=== PATIENT | male | born 1970 | race Caucasian/White ===

== ENCOUNTER 2019-02-23 05:44 | Inpatient (IN) | payer BC ==
[2019-02-22 15:28] VITALS: BMI 31.1
[~2019-02-23] VITALS: Ht 185.4 cm; Wt 105.6 kg
[2019-02-23] VITALS (40 sets, daily range): BP systolic 107–140; BP diastolic 51–72; PULSE 56–104; RESP 10–25; Ht 185.4 cm; Wt 105.6 kg
[2019-02-23] MEDS ORDERED: LIDOCAINE 2% (SDV) 5 ML INJ ONE (07:00)
[2019-02-23] MEDS ORDERED: DESFLURANE 15 MIN ONE (07:00)
[2019-02-23] MEDS: LACTATED RINGER'S 1,000 ML IV SCH (07:10)
--- NOTE | 2019-02-23 07:42 | HPN ---
Date/Time of Note Date/Time of Note DATE: 02/23/19 TIME: 07:42 Interval H&P Admission Note Pt. seen H&P reviewed: No system changes HAYDEE MELO MD Feb 23, 2019 07:42
[2019-02-23] MEDS ORDERED: GELATIN SIZE 100 SPONGE ONE (07:44)
[2019-02-23] MEDS ORDERED: THROMBIN 5000 UNIT VIAL ONE ×2 (07:44→09:02)
[2019-02-23] MEDS ORDERED: POLYMYXIN/BACITRACIN 1L IRRIG ONE (07:45)
[2019-02-23] MEDS ORDERED: BUPIVACAINE 0.5%/EPI (SDV) 30 ML INJ ONE (07:45)
[2019-02-23] MEDS ORDERED: ROCURONIUM 50 MG INJ ONE (07:58)
[2019-02-23] MEDS ORDERED: CEFAZOLIN 1 GM INJ ONE (07:58)
[2019-02-23] MEDS ORDERED: NEOSTIGMINE 3 MG/3 ML SYRINGE ONE (07:58)
[2019-02-23] MEDS ORDERED: PROPOFOL 20 ML ONE (07:58)
[2019-02-23] MEDS ORDERED: GLYCOPYRROLATE 0.4 MG INJ ONE (07:58)
[2019-02-23] MEDS ORDERED: FENTAnyl 50 MCG/ML VIAL ONE ×3 (07:59→14:02)
[2019-02-23] MEDS ORDERED: MIDAZOLAM 1 MG/ML 2 ML INJ ONE (07:59)
[2019-02-23] MEDS ORDERED: ONDANSETRON 4 MG INJ ONE (07:59)
[2019-02-23] MEDS ORDERED: DEXAMETHASONE 4 MG/ML 5 ML INJ ONE (07:59)
[2019-02-23] MEDS ORDERED: CEFAZOLIN 2 GM/50 ML (PMX) 50 ML IVPB ONE (08:00)
--- NOTE | 2019-02-23 08:00 | PREAC ---
Date/Time of Note Date/Time of Note DATE: 02/23/19 TIME: 07:59 Anesthesia Eval and Record Evaluation Time Pre-Procedure Interview DATE: 02/23/19 TIME: 07:59 Age 48 Sex male NPO: 8 hrs Preoperative diagnosis grade 1 l4-l5 spondylolisthesis Planned procedure l4-l5 decompression and instrumented fusion Past Medical History Past Medical History: Includes Pulm: Smoking Hx (15 PY) Surgery & Anesthesia Issues No known issue Meds Anticoagulation: No Beta Divina within 24 hr: No Reason Beta Divina not given: Pt. not on B-Divina No Active Prescriptions or Reported Meds Current Medications Lactated Ringer's 1,000 ml @ 25 mls/hr Q24H IV Last administered on 02/23/19at 07:10; Admin Dose 25 MLS/HR; Start 02/23/19 at 06:30 Cefazolin Sodium/ Dextrose 50 ml @ 100 mls/hr PRE-OP ONCE IVPB ; Start 02/23/19 at 08:00; Stop 02/23/19 at 08:29 Meds reviewed: Yes Allergies Coded Allergies: No Known Allergy (Unverified , 02/23/19) Allergies Reviewed: Yes Labs/Studies Labs Reviewed: Reviewed by anesthesiologist Blood Bank Test 02/23/19 07:07 Antibody Screen NEGATIVE Blood Type O POSITIVE test: N/A Studies: ECG (NL), CXR (NAPD) Pre-procedure Exam Last vitals Vital Signs Date Temp Pulse Resp B/P (MAP) Pulse Ox O2 O2 Flow FiO2 Time Delivery Rate 02/23/19 98.6 56 18 118/69 96 Room Air 06:51 (85) Airway: Adequate mouth opening, Adequate thyromental dist Mallampati: Mallampati II Teeth: Normal Lung: Normal Heart: Normal ASA Physical Status ASA physical status: 2 Emergency: None Planned Anesthetic General/MAC: ETT Planned Pain Management Parenteral pain med Pre-operative Attestations Prior to commencing anesthesia and surgery, the patient was re-evaluated, there was verification of: *The patient's identity *The results of appropriate recent lab work and preoperative vital signs *The above evaluation not changing prior to induction *Anesthetic plan, risk benefits, alternative and complications discussed with patient/family; questions answered; patient/family understands, accepts and wishes to proceed. Teodoro Brown M.D. Feb 23, 2019 08:00
[2019-02-23] MEDS ORDERED: OXYCODONE/ACETAMINOPHEN (5/325) TAB PO PRN ×2 (08:30)
[2019-02-23] MEDS ORDERED: IPRATROPIUM (NEB) 0.5 MG/2.5 ML AMP HHN PRN (08:30)
[2019-02-23] MEDS ORDERED: hydrALAzine 20 MG INJ IV PRN (08:30)
[2019-02-23] MEDS ORDERED: LABETALOL HCL 20MG INJ IV PRN (08:30)
[2019-02-23] MEDS ORDERED: DIPHENHYDRAMINE 50 MG INJ IV PRN (08:30)
[2019-02-23] MEDS ORDERED: HYDROmorphONE 1 MG/5 ML IV SYRINGE IV PRN ×3 (08:30)
[2019-02-23] MEDS ORDERED: MEPERIDINE 25 MG INJ IV PRN (08:30)
[2019-02-23] MEDS ORDERED: ONDANSETRON 4 MG INJ IV PRN ×2 (08:30→15:00)
[2019-02-23] MEDS ORDERED: FENTAnyl 50 MCG/ML VIAL IV PRN ×3 (08:30)
[2019-02-23] MEDS ORDERED: MIDAZOLAM 1 MG/ML 2 ML INJ IV PRN (08:30)
[2019-02-23] MEDS ORDERED: TRIMETHOBENZAMIDE 100 MG/ML VIAL IM PRN (08:30)
[2019-02-23] MEDS ORDERED: ALBUTEROL 0.083% (NEB) 2.5 MG/3 ML AMP HHN PRN (08:30)
[2019-02-23] MEDS ORDERED: EPHEDrine 25 MG/5 ML SYG IV PRN (08:30)
--- NOTE | 2019-02-23 14:30 | PAC ---
Date/Time of Note Date/Time of Note DATE: 02/23/19 TIME: 14:30 Post-Anesthesia Notes Post-Anesthesia Note Last documented vital signs Vital Signs Date Temp Pulse Resp B/P (MAP) Pulse Ox O2 O2 Flow FiO2 Time Delivery Rate 02/23/19 98.6 56 18 118/69 96 Room Air 06:51 (85) Activity: WNL Respiratory function: WNL Cardiovascular function: WNL Mental status: Baseline Pain reasonably controlled: Yes Hydration appropriate: Yes Nausea/Vomiting absent: Yes Teodoro Brown M.D. Feb 23, 2019 14:30
[2019-02-23] MEDS: DEXTROSE 5%-0.45% NACL 1,000 ML IV SCH ×2 (14:38→23:20)
--- NOTE | 2019-02-23 14:38 | OPR ---
Date/Time of Note Date/Time of Note DATE: 02/23/19 TIME: 14:26 Operative Report Free Text/Dictation DATE OF SURGERY: 02/23/2019 PREOPERATIVE DIAGNOSES: 1. L4-5 grade 1 degenerative spondylolisthesis with severe spinal stenosis and right greater than left sided L4 and L5 radiculopathy 2. Right sided L3-4 subarticular stenosis with L4 radiculopathy POSTOPERATIVE DIAGNOSES: 1. L4-5 grade 1 degenerative spondylolisthesis with severe spinal stenosis and right greater than left sided L4 and L5 radiculopathy 2. Right sided L3-4 subarticular stenosis with L4 radiculopathy OPERATION PERFORMED: 1. Transforaminal lumbar interbody fusion (TLIF) L4-5 2. Placement of anterior interbody device (TLIF cage) L4-5 3. Placement of posterior spinal segmental instrumentation L4-5 4. Posterior spinal fusion L4-5 5.Bilateral L4-5 laminectomy, medial facetectomy and foraminotomy 6. Right sided L3-4 partial laminontomy, medial facetectomy and foraminotomy 7. Interpretation of neuromonitoring SURGEON: Haydee Melo MD Medical Esthetician: CHRISTIANE Nur ANESTHESIA: General endotracheal ESTIMATED BLOOD LOSS: 350 cc SURGICAL INDICATION: The patient is a 48 year-old male who presents with an increasing history of back and right greater than left sided leg pain. The patient was found to have an unstable spondylolisthesis at L4-5 with associated stenosis a right sided subarticular stenosis at L3-4 with radiculopathy. The patient had failed conservative treatments. Risks, benefits and alternatives to posterior decompression with spinal fusion with instrumentation and TLIF were explained to the patient including but not exclusive of bleeding, infection, visceral injury, nerve injury, nonunion, instrumentation failure, lack of symptom relief, myocardial infarction, stroke, and pulmonary embolism, adjacent segment disease and they wished to proceed. DESCRIPTION OF TECHNIQUE: The patient was identified in the preoperative area and taken to the operating room. Rapid induction of general endotracheal anesthesia was performed. Patient was given 2 g of cefazolin for prophylaxis. Patient was placed in the prone position, with all bony prominences were well-padded, on a Unruly table . Patient's lower back was prepped and draped in sterile fashion. A time-out was held in which patient identifying information including name, date of and medical record number were all verified. We began our procedure by marking L4- 5 disc space levels using a spinal needle and fluoroscopic guidance. An incision was then made accordingly midline. A self retraining retractor was then placed at the L4-5 level after dissecting down the bilateral L4 spinous process and lamina and over the facet capsule. Intraoperative fluoroscopy confirmed the level. A rongeur was used to remove the L4 spinous process and the interspinous ligaments. We identified the interlaminar window. The microscope was brought into use for microdissection. The high-speed bur was used to thin the L4 lamina. Kerrison rongeurs were then used to resect a the lamina, and a portion of the medial facet and the bone overlying the foramen bilaterally. Ligamentum flavum was also resected using the Kerrison rongeurs. Care was taken to protect the thecal sac throughout the decompressive procedure. Palpation with a ball-tip probe did not reveal any further stenosis at the end of the procedure at L4-5 in the central, subarticular, or foraminal areas. The bilateral L5 and L4 pedicles were palpated using a liu to ensure a pedicle to pedicle decompression. The exiting L4 nerve root and traversing L5 nerve roots were both directly visualized and noted to be decompressed. The cephalad and caudad extent of the decompression were also confirmed using ball-tip probes and intraope rative fluoroscopy. We then retracted the dura and the traversing L5 nerve root using a nerve retractor to expose the right sided disk space. We then performed a discectomy at this level using a disc knife, a series of curettes and christie, and a rasp. Meticulous dissection was performed during this part of the procedure. We ensured not to violate the endplates and remove as much disc material as possible. We then placed a series of trials to find the correct size for our cage. A 12 mm x 28mm 8 degree lordotic cage was chosen and was found to be of appropriate fit. Prior to placement of this cage the disc space was packed with patient allograft from bony resection of his spinous process as well as osteo-cell pro. We then placed the appropriate size cage that was also filled with osteocel pro and allograft into the disc space. We ensured appropriate midline and A-P placement of the cage using AP and lateral x-rays. We then extended are decompression proximally to the L3-4 level on the right. A rongeur was used to remove a portion of the L3 spinous process and the interspinous ligaments. We identified the interlaminar window. The microscope was brought into use for microdissection. The high-speed bur was used to thin the right L3 lamina. Kerrison rongeurs were then used to resect a portion of the lamina, and a portion of the medial facet and the bone overlying the foramen on the right. Ligamentum flavum was also resected using the Kerrison rongeurs. Care was taken to protect the thecal sac throughout the decompressive procedure. Palpation with a ball-tip probe did not reveal any further stenosis at the end of the procedure at the L3-4 central, right subarticular, or right foraminal areas. The right L4 and L3 pedicles were palpated using a liu to ensure a pedicle to pedicle decompression. The exiting L3 nerve root and traversing L4 nerve roots were both directly visualized and noted to be decompressed. The cephalad and caudad extent of the decompression were also confirmed using ball- tip probes and intraoperative fluoroscopy. We then focused on placement of posterior spinal segmental instrumentation from L4-5. Using intraoperative fluoroscopy, the pedicles were identified at each level. Care was taken to alter the fluoroscopic view to have a true AP and lateral at each level. Jamshidi needles were then passed down to the lateral aspect of the pedicles through stab incisions. The Jamshidi needles were malleted into the pedicles. These were also performed under EMG guidance. Care was taken to ensure that the needles did not pass the medial wall of the pedicle on the AP view prior to checking that the needle was past the posterior wall of the vertebral body. The needles were then malleted further into the vertebral bodies themselves. Guidewires were passed through the needles and the needles were removed. Taps were applied over the guidewires. Screws were then placed bilaterally into the vertebral bodies. AP and lateral views confirmed appropriate placement of the instrumentation. Attention was turned toward the posterior spinal fusion from L4-5. Rods were selected of the appropriate length and placed into the screw heads. End caps were applied and final tightening was performed using a [id number]-vygfbc wrench. The exposed the facet joints were decorticated. A small remaining amount of allograft was placed into the facet joints to facilitate the posterior fusion. The wound was irrigated copiously using normal saline. The fascia was then closed using 1 Vicryl in interrupted fashion. Subcutaneous tissue was closed using 2-0 Vicryl in interrupted fashion. A drain (medium Hemovac)was also placed in the wound. Skin was closed using a running 4-0 Monocryl stitch. The wounds were dressed using Dermabond, sterile gauze and Tegaderm. The patient was returned to the supine position. The patient was extubated immediately postoperatively and taken to the recovery room in stable condition. Patient tolerated the procedure well and left the operating room in stable condition. Implants used: 1. 12mm x28mm TLIF cage (Nuvasive) 3. Osteocel pro 5. NuVasive 6.545 mm screws x4 6.45 mm russ x 1 (Left), 40mm russ x 1 (Right) Procedure Date: Feb 23, 2019 Preoperative Diagnosis 1. L4-5 grade 1 degenerative spondylolisthesis with severe spinal stenosis and right greater than left sided L4 and L5 radiculopathy 2. Right sided L3-4 subarticular stenosis with L4 radiculopathy Postoperative Diagnosis 1. L4-5 grade 1 degenerative spondylolisthesis with severe spinal stenosis and right greater than left sided L4 and L5 radiculopathy 2. Right sided L3-4 subarticular stenosis with L4 radiculopathy Operation/Procedure Performed 1. Transforaminal lumbar interbody fusion (TLIF) L4-5 2. Placement of anterior interbody device (TLIF cage) L4-5 3. Placement of posterior spinal segmental instrumentation L4-5 4. Posterior spinal fusion L4-5 5.Bilateral L4-5 laminectomy, medial facetectomy and foraminotomy 6. Right sided L3-4 partial laminontomy, medial facetectomy and foraminotomy 7. Interpretation of neuromonitoring Surgeon see signature line Medical Esthetician CHRISTIANE Nur Anesthesia Type: general Estimated Blood Loss: 250 - 300 ml's Transfusion none Specimen L4-5 disk Grafts/Implants see op report Complications none Pt Condition Post Procedure: stable Disposition: PACU Procedure Description The patient was identified in the preoperative area and taken to the operating room. Rapid induction of general endotracheal anesthesia was performed. Patient was given 2 g of cefazolin for prophylaxis. Patient was placed in the prone position, with all bony prominences were well-padded, on a Unruly table . Patient's lower back was prepped and draped in sterile fashion. A time-out was held in which patient identifying information including name, date of and medical record number were all verified. We began our procedure by marking L4- 5 disc space levels using a spinal needle and fluoroscopic guidance. An incision was then made accordingly midline. A self retraining retractor was then placed at the L4-5 level after dissecting down the bilateral L4 spinous process and lamina and over the facet capsule. Intraoperative fluoroscopy confirmed the level. A rongeur was used to remove the L4 spinous process and the interspinous ligaments. We identified the interlaminar window. The microscope was brought into use for microdissection. The high-speed bur was used to thin the L4 lamina. Kerrison rongeurs were then used to resect a the lamina, and a portion of the medial facet and the bone overlying the foramen bilaterally. Ligamentum flavum was also resected using the Kerrison rongeurs. Care was taken to protect the thecal sac throughout the decompressive procedure. Palpation with a ball-tip probe did not reveal any further stenosis at the end of the procedure at L4-5 in the central, subarticular, or foraminal areas. The bilateral L5 and L4 pedicles were palpated using a liu to ensure a pedicle to pedicle decompression. The exiting L4 nerve root and traversing L5 nerve roots were both directly visualized and noted to be decompressed. The cephalad and caudad extent of the decompression were also confirmed using ball-tip probes and intraoperative fluoroscopy. We then retracted the dura and the traversing L5 nerve root using a nerve retractor to expose the right sided disk space. We then performed a discectomy at this level using a disc knife, a series of curettes and christie, and a rasp. Meticulous dissection was performed during this part of the procedure. We ensured not to violate the endplates and remove as much disc material as possible. We then placed a series of trials to find the correct size for our cage. A 12 mm x 28mm 8 degree lordotic cage was chosen and was found to be of appropriate fit. Prior to placement of this cage the disc space was packed with patient allograft from bony resection of his spinous process as well as osteo-cell pro. We then placed the appropriate size cage that was also filled with osteocel pro and allograft into the disc space. We ensured appropriate midline and A-P placement of the cage using AP and lateral x-rays. We then extended are decompression proximally to the L3-4 level on the right. A rongeur was used to remove a portion of the L3 spinous process and the interspinous ligaments. We identified the interlaminar window. The microscope was brought into use for microdissection. The high-speed bur was used to thin the right L3 lamina. Kerrison rongeurs were then used to resect a portion of the lamina, and a portion of the medial facet and the bone overlying the foramen on the right. Ligamentum flavum was also resected using the Kerrison rongeurs. Care was taken to protect the thecal sac throughout the decompressive procedure. Palpation with a ball-tip probe did not reveal any further stenosis at the end of the procedure at the L3-4 central, right subarticular, or right foraminal areas. The right L4 and L3 pedicles were palpated using a liu to ensure a pedicle to pedicle decompression. The exiting L3 nerve root and traversing L4 nerve roots were both directly visualized and noted to be decompressed. The cephalad and caudad extent of the decompression were also confirmed using ball- tip probes and intraoperative fluoroscopy. We then focused on placement of posterior spinal segmental instrumentation from L4-5. Using intraoperative fluoroscopy, the pedicles were identified at each level. Care was taken to alter the fluoroscopic view to have a true AP and lateral at each level. Jamshidi needles were then passed down to the lateral aspect of the pedicles through stab incisions. The Jamshidi needles were malleted into the pedicles. These were also performed under EMG guidance. Care was taken to ensure that the needles did not pass the medial wall of the pedicle on the AP view prior to checking that the needle was past the posterior wall of the vertebral body. The needles were then malleted further into the vertebral bodies themselves. Guidewires were passed through the needles and the needles were removed. Taps were applied over the guidewires. Screws were then placed bilaterally into the vertebral bodies. AP and lateral views confirmed appropriat e placement of the instrumentation. Attention was turned toward the posterior spinal fusion from L4-5. Rods were selected of the appropriate length and placed into the screw heads. End caps were applied and final tightening was performed using a [id number]-[id number] wrench. The exposed the facet joints were decorticated. A small remaining amount of allograft was placed into the facet joints to facilitate the posterior fusion. The wound was irrigated copiously using normal saline. The fascia was then clos ed using 1 Vicryl in interrupted fashion. Subcutaneous tissue was closed using 2-0 Vicryl in interrupted fashion. A drain (medium Hemovac)was also placed in the wound. Skin was closed using a running 4-0 Monocryl stitch. The wounds were dressed using Dermabond, sterile gauze and Tegaderm. The patient was returned to the supine position. The patient was extubated immediately postoperatively and taken to the recovery room in stable condition. Patient tolerated the procedure well and left the operating room in stable condition. Implants used: 1. 12mm x28mm TLIF cage (Nuvasive) 3. Osteocel pro 5. NuVasive 6.545 mm screws x4 6.45 mm russ x 1 (Left), 40mm russ x 1 (Right) HAYDEE MELO MD Feb 23, 2019 14:37
[2019-02-23] MEDS ORDERED: AL HYDROX/MG HYDROX/SIMETH 30 ML CUP PO PRN (15:00)
[2019-02-23] MEDS ORDERED: HYDROmorphONE 0.2 MG/ML PCA IV SCH (15:00)
[2019-02-23] MEDS ORDERED: NALOXONE (0.4 MG/ML) INJ IV PRN (15:00)
[2019-02-23] MEDS ORDERED: PROCHLORPERAZINE 10 MG TAB PO PRN (15:00)
[2019-02-23] MEDS ORDERED: NACL 0.9% 3 ML SYG IV SCH (15:00)
[2019-02-23] MEDS ORDERED: HYDROCODONE/APAP (5/325) TAB PO PRN (15:00)
[2019-02-23] MEDS ORDERED: ACETAMINOPHEN 325 MG TAB PO PRN (15:00)
[2019-02-23] MEDS: ACETAMINOPHEN 1000MG/100ML IV 100 ML IVPB SCH ×2 (15:15→21:13)
--- NOTE | 2019-02-23 15:57 | CONS ---
Assessment/Plan Assessment/Plan Assessment/Plan (Daily) Medical consult dictated Healthy Make without signfigant PMH C/O post op pain left shoulder and left pect area when rasing left arm I think musculoskeletal rev with nursing staff and will follow Consultation Date/Type/Reason Admit Date/Time Feb 23, 2019 at 05:44 Date/Time of Note DATE: 02/23/19 TIME: 15:55 Past Medical History Home Meds No Active Prescriptions or Reported Meds Medications Current Medications Lactated Ringer's 1,000 ml @ 25 mls/hr Q24H IV Last administered on 02/23/19at 07:10; Admin Dose 25 MLS/HR; Start 02/23/19 at 06:30 Hydromorphone HCl (Dilaudid) 0.2 mg PACU PRN IV MILD PAIN 1-3 Last administered on 02/23/19at 15:14; Admin Dose 0.2 MG; Start 02/23/19 at 08:30; Stop 02/23/19 at 17:00 Hydromorphone HCl (Dilaudid) 0.4 mg PACU PRN IV MOD PAIN 4-6; Start 02/23/19 at 08:30; Stop 02/23/19 at 17:00 Hydromorphone HCl (Dilaudid) 0.6 mg PACU PRN IV SEVERE PAIN 7-10 Last administered on 02/23/19at 14:42; Admin Dose 0.6 MG; Start 02/23/19 at 08:30; Stop 02/23/19 at 17:00 Fentanyl (Sublimaze) 25 mcg PACU ORDER PRN IV MILD PAIN 1-3; Start 02/23/19 at 08:30; Stop 02/23/19 at 17:00 Fentanyl (Sublimaze) 50 mcg PACU ORDER PRN IV MOD PAIN 4-6; Start 02/23/19 at 08:30; Stop 02/23/19 at 17:00 Fentanyl (Sublimaze) 75 mcg PACU ORDER PRN IV SEVERE PAIN 7-10; Start 02/23/19 at 08:30; Stop 02/23/19 at 17:00 Oxycodone/ Acetaminophen (Percocet (5/ 325)) 1 tab PACU ORDER PRN PO .PAIN 1-5; Start 02/23/19 at 08:30; Stop 02/23/19 at 17:00 Oxycodone/ Acetaminophen (Percocet (5/ 325)) 2 tab PACU ORDER PRN PO .PAIN 6-10; Start 02/23/19 at 08:30; Stop 02/23/19 at 17:00 Ondansetron HCl (Zofran Inj) 4 mg PACU ORDER PRN IV NAUSEA/VOMITING Last administered on 02/23/19at 14:42; Admin Dose 4 MG; Start 02/23/19 at 08:30; Stop 02/23/19 at 17:00 Trimethobenzamide HCl (Tigan) 200 mg PACU ORDER PRN IM NAUSEA/VOMITING; Start 02/23/19 at 08:30; Stop 02/23/19 at 17:00 Labetalol HCl (Labetalol) 5 mg PACU ORDER PRN IV HIGH BLOOD PRESSURE; Start 02/23/19 at 08:30; Stop 02/23/19 at 17:00 Hydralazine HCl (Apresoline) 5 mg PACU ORDER PRN IV HIGH BLOOD PRESSURE; Start 02/23/19 at 08:30; Stop 02/23/19 at 17:00 Ephedrine Sulfate 5 mg PACU ORDER PRN IV BLOOD PRESSURE SUPPORT; Start 02/23/19 at 08:30; Stop 02/23/19 at 17:00 Albuterol (Proventil 0.083% (Neb)) 2.5 mg PACU ORDER PRN HHN .WHEEZING; Start at 08:30; Stop 02/23/19 at 17:00 Ipratropium [place] (Atrovent 0.02% (Neb)) 0.5 mg PACU ORDER PRN HHN .WHEEZING; Start 02/23/19 at 08:30; Stop 02/23/19 at 17:00 Meperidine HCl (Demerol) 25 mg PACU ORDER PRN IV .RIGORS; Start 02/23/19 at 08:30; Stop 02/23/19 at 17:00 Diphenhydramine HCl (Benadryl) 25 mg PACU ORDER PRN IV .PRURITUS; Start 02/23/19 at 08:30; Stop 02/23/19 at 17:00 Midazolam HCl (Versed) 0.5 mg PACU ORDER PRN IV .ANXIETY; Start 02/23/19 at 08:30; Stop 02/23/19 at 17:00 Dextrose/Sodium Chloride 1,000 ml @ 100 mls/hr Q10H IV ; Start 02/23/19 at 14:38 Acetaminophen/ Hydrocodone Bitart ([place] (5/325)) 1 tab Q4H PRN PO .PAIN 1-5; Start 02/23/19 at 15:00 Acetaminophen/ Hydrocodone Bitart ([place] (5/325)) 2 tab Q4H PRN PO .PAIN 6-10; Start 02/23/19 at 15:00 Cefazolin Sodium 50 ml @ 100 mls/hr Q6 IVPB ; Start 02/23/19 at 18:00; Stop 02/24/19 at 12:29 Prochlorperazine (Compazine) 10 mg Q4H PRN PO NAUSEA/VOMITING; Start 02/23/19 at 15:00 Ondansetron HCl (Zofran Inj) 4 mg Q6H PRN IV NAUSEA/VOMITING; Start 02/23/19 at 15:00 Al Hydrox/Mg Hydrox/Simethicone (Mag-Al Plus) 15 ml Q4H PRN PO .CONSTIPATION; Start 02/23/19 at 15:00 Docusate Sodium (Colace) 100 mg BID PO ; Start 02/24/19 at 09:00 Acetaminophen (Tylenol Tab) 650 mg Q4H PRN PO TEMP GREATER THAN 101F OR TILLMAN; Start 02/23/19 at 15:00 IV Flush (NS 3 ml) 3 ml PER PROTOCOL IV ; Start 02/23/19 at 15:00 Hydromorphone HCl (Dilaudid METAL RIVET MACHINE OPERATOR) Q4PCA IV ; Start 02/23/19 at 15:00 Naloxone HCl (Narcan) 0.2 mg Q2M PRN IV RR 8 BREATHS/MIN OR LESS; Start 02/23/19 at 15:00 Acetaminophen 100 ml @ 400 mls/hr Q8 IVPB Last administered on 02/23/19at 15:15; Admin Dose 400 MLS/HR; Start 02/23/19 at 15:30; Stop 02/24/19 at 15:29 Allergies: Coded Allergies: No Known Allergy (Unverified , 02/23/19) Social History Smoking Status: Current every day smoker Exam/Review of Systems Exam Vitals Vital Signs Date Temp Pulse Resp B/P (MAP) Pulse Ox O2 O2 Flow FiO2 Time Delivery Rate 02/23/19 84 14 122/51 94 Nasal 2.0 14:51 (74) Cannula 02/23/19 99.7 14:36 Results Result Diagram: 02/23/19 1539 Results 24hrs Laboratory Tests Test 02/23/19 15:39 Hemoglobin 14.1 Hematocrit 42.2 Medications Medication Current Medications Lactated Ringer's 1,000 ml @ 25 mls/hr Q24H IV Last administered on 02/23/19at 07:10; Admin Dose 25 MLS/HR; Start 02/23/19 at 06:30 Hydromorphone HCl (Dilaudid) 0.2 mg PACU PRN IV MILD PAIN 1-3 Last administered on 02/23/19at 15:14; Admin Dose 0.2 MG; Start 02/23/19 at 08:30; Stop 02/23/19 at 17:00 Hydromorphone HCl (Dilaudid) 0.4 mg PACU PRN IV MOD PAIN 4-6; Start 02/23/19 at 08:30; Stop 02/23/19 at 17:00 Hydromorphone HCl (Dilaudid) 0.6 mg PACU PRN IV SEVERE PAIN 7-10 Last administered on 02/23/19at 14:42; Admin Dose 0.6 MG; Start 02/23/19 at 08:30; Stop 02/23/19 at 17:00 Fentanyl (Sublimaze) 25 mcg PACU ORDER PRN IV MILD PAIN 1-3; Start 02/23/19 at 08:30; Stop 02/23/19 at 17:00 Fentanyl (Sublimaze) 50 mcg PACU ORDER PRN IV MOD PAIN 4-6; Start 02/23/19 at 08:30; Stop 02/23/19 at 17:00 Fentanyl (Sublimaze) 75 mcg PACU ORDER PRN IV SEVERE PAIN 7-10; Start 02/23/19 at 08:30; Stop 02/23/19 at 17:00 Oxycodone/ Acetaminophen (Percocet (5/ 325)) 1 tab PACU ORDER PRN PO .PAIN 1-5; Start 02/23/19 at 08:30; Stop 02/23/19 at 17:00 Oxycodone/ Acetaminophen (Percocet (5/ 325)) 2 tab PACU ORDER PRN PO .PAIN 6-10; Start 02/23/19 at 08:30; Stop 02/23/19 at 17:00 Ondansetron HCl (Zofran Inj) 4 mg PACU ORDER PRN IV NAUSEA/VOMITING Last administered on 02/23/19at 14:42; Admin Dose 4 MG; Start 02/23/19 at 08:30; Stop 02/23/19 at 17:00 Trimethobenzamide HCl (Tigan) 200 mg PACU ORDER PRN IM NAUSEA/VOMITING; Start 02/23/19 at 08:30; Stop 02/23/19 at 17:00 Labetalol HCl (Labetalol) 5 mg PACU ORDER PRN IV HIGH BLOOD PRESSURE; Start 02/23/19 at 08:30; Stop 02/23/19 at 17:00 Hydralazine HCl (Apresoline) 5 mg PACU ORDER PRN IV HIGH BLOOD PRESSURE; Start 02/23/19 at 08:30; Stop 02/23/19 at 17:00 Ephedrine Sulfate 5 mg PACU ORDER PRN IV BLOOD PRESSURE SUPPORT; Start 02/23/19 at 08:30; Stop 02/23/19 at 17:00 Albuterol (Proventil 0.083% (Neb)) 2.5 mg PACU ORDER PRN HHN .WHEEZING; Start 02/23/19 at 08:30; Stop 02/23/19 at 17:00 Ipratropium [place] (Atrovent 0.02% (Neb)) 0.5 mg PACU ORDER PRN HHN .WHEEZING; Start 02/23/19 at 08:30; Stop 02/23/19 at 17:00 Meperidine HCl (Demerol) 25 mg PACU ORDER PRN IV .RIGORS; Start 02/23/19 at 08:30; Stop 02/23/19 at 17:00 Diphenhydramine HCl (Benadryl) 25 mg PACU ORDER PRN IV .PRURITUS; Start 02/23/19 at 08:30; Stop 02/23/19 at 17:00 Midazolam HCl (Versed) 0.5 mg PACU ORDER PRN IV .ANXIETY; Start 02/23/19 at 08:30; Stop 02/23/19 at 17:00 Dextrose/Sodium Chloride 1,000 ml @ 100 mls/hr Q10H IV ; Start 02/23/19 at 14:38 Acetaminophen/ Hydrocodone Bitart ([place] (5/325)) 1 tab Q4H PRN PO .PAIN 1-5; Start 02/23/19 at 15:00 Acetaminophen/ Hydrocodone Bitart ([place] (5/325)) 2 tab Q4H PRN PO .PAIN 6-10; Start 02/23/19 at 15:00 Cefazolin Sodium 50 ml @ 100 mls/hr Q6 IVPB ; Start 02/23/19 at 18:00; Stop 02/24/19 at 12:29 Prochlorperazine (Compazine) 10 mg Q4H PRN PO NAUSEA/VOMITING; Start 02/23/19 at 15:00 Ondansetron HCl (Zofran Inj) 4 mg Q6H PRN IV NAUSEA/VOMITING; Start 02/23/19 at 15:00 Al Hydrox/Mg Hydrox/Simethicone (Mag-Al Plus) 15 ml Q4H PRN PO .CONSTIPATION; Start 02/23/19 at 15:00 Docusate Sodium (Colace) 100 mg BID PO ; Start 02/24/19 at 09:00 Acetaminophen (Tylenol Tab) 650 mg Q4H PRN PO TEMP GREATER THAN 101F OR TILLMAN; Start 02/23/19 at 15:00 IV Flush (NS 3 ml) 3 ml PER PROTOCOL IV ; Start 02/23/19 at 15:00 Hydromorphone HCl (Dilaudid METAL RIVET MACHINE OPERATOR) Q4PCA IV ; Start 02/23/19 at 15:00 Naloxone HCl (Narcan) 0.2 mg Q2M PRN IV RR 8 BREATHS/MIN OR LESS; Start 02/23/19 at 15:00 Acetaminophen 100 ml @ 400 mls/hr Q8 IVPB Last administered on 02/23/19at 15:15; Admin Dose 400 MLS/HR; Start 02/23/19 at 15:30; Stop 02/24/19 at 15:29 ABDULKADIR BELCHER MD Feb 23, 2019 15:57
[2019-02-23] MEDS: CEFAZOLIN 1 GM/50 ML (PMX) 50 ML IVPB SCH ×2 (18:08→23:21)
--- NOTE | 2019-02-23 18:22 | CONS ---
DATE OF ADMISSION: 02/23/2019 DATE OF CONSULTATION: 02/23/[address] Melo: Thank you very much for allowing me to evaluate this 48-year-old male who just underwent low back stacie jitendra. HISTORICAL EVENTS: As you well know, this patient was evaluated by you in December of this year when he indicated he had low back pain radiating to his posterior thighs. Physical therapy provided no sign ificant relief. Imaging study revealed L4-L5 degenerative spondylolisthesis with significant central and subarticular stenosis. He also reported some weakness involving ____ compared to his weakness i n his right lower extremity. Because of continued pain and conservative therapy that did not provide any relief, he elected to proceed with surgery. Postoperatively, he denies cough, wheezing, shortne ss of breath. Has noted some discomfort in the left shoulder and inframammary area when moving his l eft arm. He denies nausea, vomiting or abdominal pain. MEDICATIONS: Prior to admission include Naprosyn 200 mg per day. ALLERGIES: NONE. SOCIAL HISTORY: Single, does not drink, does not smoke. FAMILY HISTORY: Noncontributory. PHYSICAL EXAMINATION: GENERAL: Healthy appearing male in no acute distress. VITAL SIGNS: BP 122/80, pulse 70, respirations were 18. He is afebrile. EYES: Extraocular muscles were full. NOSE, MOUTH, AND THROAT: Normal. NECK: Supple. There was no jugular venous distention, thyroid enlargement or adenopathy. Carotids 2+. LUNGS: Clear. HEART: Rhythm regular, no murmur. No third or fourth sound. ABDOMEN: Nontender. Liver and spleen were not palpable. No mass or tenderness were noted. EXTREMITIES: No edema. Calves nontender. Pulses 2+. MUSCULOSKELETAL: Revealed some tenderness involving the left inframammary area and left shoulder. IMPRESSION: 1. Stable postoperative lumbar back surgery. 2. Arm and chest pain, I think musculoligamentous. PLAN: Will follow daily and observe for signs and symptoms of thromboembolic disease. Dictated By: ABDULKADIR BELCHER MD MR/CAT Conf#: [id number] DID#: [id number] CC: HAYDEE MELO MD;*EndCC*
[2019-02-24 00:07] VITALS: BP 120/57; PULSE 55; RESP 18
[2019-02-24] MEDS: DEXTROSE 5%-0.45% NACL 1,000 ML IV SCH ×3 (00:38→20:38)
[2019-02-24] MEDS: ACETAMINOPHEN 1000MG/100ML IV 100 ML IVPB SCH ×2 (05:18→14:00)
[2019-02-24] MEDS: CEFAZOLIN 1 GM/50 ML (PMX) 50 ML IVPB SCH ×2 (05:51→12:23)
[2019-02-24] MEDS: LACTATED RINGER'S 1,000 ML IV SCH (06:16)
[2019-02-24 07:39] VITALS: BP 104/53; PULSE 60; RESP 18
[2019-02-24] MEDS: DOCUSATE SODIUM 100 MG CAP PO SCH ×2 (08:32→22:17)
--- NOTE | 2019-02-24 09:28 | CONS ---
Consultation Date/Type/Reason Admit Date/Time Feb 23, 2019 at 05:44 Initial Consult Date Date/Time of Note DATE: 02/24/19 TIME: 09:26 24 HR Interval Summary Free Text/Dictation S: 48 yo M POD#1 s/p L3-L5 decompression w/ TLIF and PSIF. No acute events over night. 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 Tolerating regular diet. O: Vital Signs Date Temp Pulse Resp B/P (MAP) Pulse Ox O2 O2 Flow FiO2 Time Delivery Rate 02/24/19 97.7 60 18 104/53 100 07:39 (70) 02/24/19 18 05:00 Gen: AAOx3, NAD Spine: NVI A/P:48 yo M POD#1 s/p L3-L5 decompression w/ TLIF and PSIF 1. D/C INTERNET PROGRAMMER 2. D/C [place] 3. Mar[place]za control w/ prn PO [place] w/ Dilaudid 0.5 IV prn breakthrough pain 4. Appreciate med recs 5. OOB w/ PT w/ corset or brace Exam/Review of Systems Exam Vitals Vital Signs Date Temp Pulse Resp B/P (MAP) Pulse Ox O2 O2 Flow FiO2 Time Delivery Rate 02/24/19 97.7 60 18 104/53 100 07:39 (70) 02/23/19 Nasal 2.0 20:00 Cannula Intake and Output 02/23/19 02/23/19 02/24/19 1515:00 23:00 07:00 IntakeIntake Total 3000 ml 250 ml 2400 ml OutputOutput Total 870 ml 30 ml 2600 ml BalanceBalance 2130 ml 220 ml -200 ml Results Result Diagram: 02/24/19 0459 02/24/19 0459 Results 24hrs Laboratory Tests Test 02/23/19 15:39 02/24/19 04:59 02/24/19 07:41 Hemoglobin 14.1 13.0 L Hematocrit 42.2 38.8 L Sodium Level 140 Potassium Level 4.3 Chloride Level 106 Carbon Dioxide Level 30 Anion Gap 4 L Blood Urea Nitrogen 12 Creatinine 0.92 Est Glomerular Filtrat Rate mL/min > 60 Glucose Level 136 Calcium Level 8.3 L Lab Scanned Report REFERENCE LAB Medications Medication Current Medications Lactated Ringer's 1,000 ml @ 25 mls/hr Q24H IV Last administered on 02/23/19at 07:10; Admin Dose 25 MLS/HR; Start 02/23/19 at 06:30 Dextrose/Sodium Chloride 1,000 ml @ 100 mls/hr Q10H IV Last administered on 02/23/19at 23:20; Admin Dose 100 MLS/HR; Start 02/23/19 at 14:38 Acetaminophen/ Hydrocodone Bitart ([place] (5/325)) 1 tab Q4H PRN PO .PAIN 1-5; Start 02/23/19 at 15:00 Acetaminophen/ Hydrocodone Bitart ([place] (5/325)) 2 tab Q4H PRN PO .PAIN 6-10; Start 02/23/19 at 15:00 Cefazolin Sodium 50 ml @ 100 mls/hr Q6 IVPB Last administered on 02/24/19at 05:51; Admin Dose 100 MLS/HR; Start 02/23/19 at 18:00; Stop 02/24/19 at 12:29 Prochlorperazine (Compazine) 10 mg Q4H PRN PO NAUSEA/VOMITING; Start 02/23/19 at 15:00 Ondansetron HCl (Zofran Inj) 4 mg Q6H PRN IV NAUSEA/VOMITING; Start 02/23/19 at 15:00 Al Hydrox/Mg Hydrox/Simethicone (Mag-Al Plus) 15 ml Q4H PRN PO .CONSTIPATION; Start 02/23/19 at 15:00 Docusate Sodium (Colace) 100 mg BID PO Last administered on 02/24/19at 08:32; Admin Dose 100 MG; Start 02/24/19 at 09:00 Acetaminophen (Tylenol Tab) 650 mg Q4H PRN PO TEMP GREATER THAN 101F OR TILLMAN; Start 02/23/19 at 15:00 IV Flush (NS 3 ml) 3 ml PER PROTOCOL IV ; Start 02/23/19 at 15:00 Hydromorphone HCl (Dilaudid INTERNET PROGRAMMER) Q4PCA IV Last administered on 02/23/19at 16:02; Admin Dose 6 MG; Start 02/23/19 at 15:00 Naloxone HCl (Narcan) 0.2 mg Q2M PRN IV RR 8 BREATHS/MIN OR LESS; Start 02/23/19 at 15:00 Acetaminophen 100 ml @ 400 mls/hr Q8 IVPB Last administered on 02/24/19at 05:18; Admin Dose 400 MLS/HR; Start 02/23/19 at 15:30; Stop 02/24/19 at 15:29 HAYDEE MELO MD Feb 24, 2019 09:28
[2019-02-24] MEDS ORDERED: HYDROmorphONE 0.5 MG/0.5 ML SYG IV PRN (09:30)
[2019-02-24] MEDS: HYDROCODONE/APAP (5/325) TAB PO PRN ×3 (13:37→22:16)
[2019-02-24 16:08] VITALS: BP 110/65; PULSE 66; RESP 18
--- NOTE | 2019-02-24 17:52 | CONS ---
Consultation Date/Type/Reason Admit Date/Time Feb 23, 2019 at 05:44 Initial Consult Date Date/Time of Note DATE: 02/24/19 TIME: 17:43 24 HR Interval Summary Free Text/Dictation No acute events overnight. Pt reports feeling like he was hit by a truck. eating ok. denies nausea. PHYSICAL EXAMINATION: GENERAL: Healthy appearing male in no acute distress. VITAL SIGNS: BP 122/80, pulse 70, respirations were 18. He is afebrile. EYES: Extraocular muscles were full. NOSE, MOUTH, AND THROAT: Normal. NECK: Supple. There was no jugular venous distention, thyroid enlargement or adenopathy. Carotids 2+. LUNGS: Clear. HEART: Rhythm regular, no murmur. No third or fourth sound. ABDOMEN: Nontender. Liver and spleen were not palpable. No mass or tenderness were noted. EXTREMITIES: No edema. Calves nontender. Pulses 2+. IMPRESSION: 1. Stable postoperative lumbar back surgery. PLAN: Will follow daily Exam/Review of Systems Exam Vitals Vital Signs Date Temp Pulse Resp B/P (MAP) Pulse Ox O2 O2 Flow FiO2 Time Delivery Rate 02/24/19 98.0 66 18 110/65 100 16:08 (80) 02/24/19 Nasal 2.0 08:00 Cannula Intake and Output 02/23/19 02/23/19 02/24/19 1515:00 23:00 07:00 IntakeIntake Total 3000 ml 250 ml 2400 ml OutputOutput Total 870 ml 30 ml 2600 ml BalanceBalance 2130 ml 220 ml -200 ml Results Result Diagram: 02/24/19 0459 02/24/19 0459 Results 24hrs Laboratory Tests Test 02/24/19 04:59 02/24/19 07:41 Hemoglobin 13.0 L Hematocrit 38.8 L Sodium Level 140 Potassium Level 4.3 Chloride Level 106 Carbon Dioxide Level 30 Anion Gap 4 L Blood Urea Nitrogen 12 Creatinine 0.92 Est Glomerular Filtrat Rate mL/min > 60 Glucose Level 136 Calcium Level 8.3 L Lab Scanned Report REFERENCE LAB Medications Medication Current Medications Lactated Ringer's 1,000 ml @ 25 mls/hr Q24H IV Last administered on 02/23/19at 07:10; Admin Dose 25 MLS/HR; Start 02/23/19 at 06:30 Dextrose/Sodium Chloride 1,000 ml @ 100 mls/hr Q10H IV Last administered on 02/24/19at 11:18; Admin Dose 100 MLS/HR; Start 02/23/19 at 14:38 Acetaminophen/ Hydrocodone Bitart ([place] (5/325)) 1 tab Q4H PRN PO .PAIN 1-5; Start 02/23/19 at 15:00 Acetaminophen/ Hydrocodone Bitart ([place] (5/325)) 2 tab Q4H PRN PO .PAIN 6-10 Last administered on 02/24/19at 13:37; Admin Dose 2 TAB; Start 02/23/19 at 15:00 Prochlorperazine (Compazine) 10 mg Q4H PRN PO NAUSEA/VOMITING; Start 02/23/19 at 15:00 Ondansetron HCl (Zofran Inj) 4 mg Q6H PRN IV NAUSEA/VOMITING; Start 02/23/19 at 15:00 Al Hydrox/Mg Hydrox/Simethicone (Mag-Al Plus) 15 ml Q4H PRN PO .CONSTIPATION; Start 02/23/19 at 15:00 Docusate Sodium (Colace) 100 mg BID PO Last administered on 02/24/19at 08:32; Admin Dose 100 MG; Start 02/24/19 at 09:00 Acetaminophen (Tylenol Tab) 650 mg Q4H PRN PO TEMP GREATER THAN 101F OR TILLMAN; Start 02/23/19 at 15:00 IV Flush (NS 3 ml) 3 ml PER PROTOCOL IV ; Start 02/23/19 at 15:00 Naloxone HCl (Narcan) 0.2 mg Q2M PRN IV RR 8 BREATHS/MIN OR LESS; Start 02/23/19 at 15:00 Hydromorphone HCl (Dilaudid) 0.5 mg Q3H PRN IV SEVERE PAIN LEVEL 7-10; Start 02/24/19 at 09:30 CLEMENTE PRESTON Feb 24, 2019 17:52
[2019-02-24 19:20] VITALS: BP 107/50; PULSE 66; RESP 18
[2019-02-25 02:17] VITALS: BP 116/56; PULSE 70; RESP 18
[2019-02-25] MEDS: HYDROCODONE/APAP (5/325) TAB PO PRN ×4 (05:00→20:40)
[2019-02-25] MEDS: LACTATED RINGER'S 1,000 ML IV SCH (06:30)
[2019-02-25] MEDS: DEXTROSE 5%-0.45% NACL 1,000 ML IV SCH ×2 (06:38→16:38)
[2019-02-25 07:39] VITALS: BP 119/56; PULSE 66; RESP 18
[2019-02-25] MEDS: DOCUSATE SODIUM 100 MG CAP PO SCH ×2 (10:04→20:40)
[2019-02-25 14:00] VITALS: BP 119/55; PULSE 64; RESP 18
--- NOTE | 2019-02-25 15:48 | CONS ---
Consultation Date/Type/Reason Admit Date/Time Feb 23, 2019 at 05:44 Initial Consult Date Date/Time of Note DATE: 02/25/19 TIME: 15:46 24 HR Interval Summary Free Text/Dictation No acute events overnight. 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 pt has corset. wound vac PHYSICAL EXAMINATION: GENERAL: Healthy appearing male in no acute distress. VITAL SIGNS: BP 122/80, pulse 70, respirations were 18. He is afebrile. EYES: Extraocular muscles were full. NOSE, MOUTH, AND THROAT: Normal. NECK: Supple. There was no jugular venous distention, thyroid enlargement or adenopathy. Carotids 2+. LUNGS: Clear. HEART: Rhythm regular, no murmur. No third or fourth sound. ABDOMEN: Nontender. Liver and spleen were not palpable. No mass or tenderness were noted. EXTREMITIES: No edema. Calves nontender. Pulses 2+. IMPRESSION: 1. Stable postoperative lumbar back surgery. 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 PLAN: Will follow daily Exam/Review of Systems Exam Vitals Vital Signs Date Temp Pulse Resp B/P (MAP) Pulse Ox O2 O2 Flow FiO2 Time Delivery Rate 02/25/19 98.3 64 18 119/55 100 14:00 (76) 02/25/19 Nasal 12:24 Cannula 02/24/19 2.0 08:00 Intake and Output 02/24/19 02/24/19 02/25/19 1515:00 23:00 07:00 IntakeIntake Total 550 ml 2860 ml 1280 ml OutputOutput Total 2270 ml 350 ml BalanceBalance 550 ml 590 ml 930 ml Results Result Diagram: 02/24/19 0459 02/24/19 0459 Medications Medication Current Medications Lactated Ringer's 1,000 ml @ 25 mls/hr Q24H IV Last administered on 02/23/19at 07:10; Admin Dose 25 MLS/HR; Start 02/23/19 at 06:30 Dextrose/Sodium Chloride 1,000 ml @ 100 mls/hr Q10H IV Last administered on 02/24/19at 11:18; Admin Dose 100 MLS/HR; Start 02/23/19 at 14:38 Acetaminophen/ Hydrocodone Bitart ([place] (5/325)) 1 tab Q4H PRN PO .PAIN 1-5; Start 02/23/19 at 15:00 Acetaminophen/ Hydrocodone Bitart ([place] (5/325)) 2 tab Q4H PRN PO .PAIN 6-10 Last administered on 02/25/19at 14:24; Admin Dose 2 TAB; Start 02/23/19 at 15:00 Prochlorperazine (Compazine) 10 mg Q4H PRN PO NAUSEA/VOMITING; Start 02/23/19 at 15:00 Ondansetron HCl (Zofran Inj) 4 mg Q6H PRN IV NAUSEA/VOMITING; Start 02/23/19 at 15:00 Al Hydrox/Mg Hydrox/Simethicone (Mag-Al Plus) 15 ml Q4H PRN PO .CONSTIPATION; Start 02/23/19 at 15:00 Docusate Sodium (Colace) 100 mg BID PO Last administered on 02/25/19at 10:04; Admin Dose 100 MG; Start 02/24/19 at 09:00 Acetaminophen (Tylenol Tab) 650 mg Q4H PRN PO TEMP GREATER THAN 101F OR TILLMAN; Start 02/23/19 at 15:00 IV Flush (NS 3 ml) 3 ml PER PROTOCOL IV ; Start 02/23/19 at 15:00 Naloxone HCl (Narcan) 0.2 mg Q2M PRN IV RR 8 BREATHS/MIN OR LESS; Start 02/23/19 at 15:00 Hydromorphone HCl (Dilaudid) 0.5 mg Q3H PRN IV SEVERE PAIN LEVEL 7-10; Start 02/24/19 at 09:30 CLEMENTE PRESTON Feb 25, 2019 15:48
[2019-02-25] MEDS ORDERED: MAGNESIUM HYDROXIDE 30ML CUP PO PRN (19:00)
[2019-02-25 19:46] VITALS: BP 117/56; PULSE 75; RESP 18
[2019-02-26] MEDS: HYDROCODONE/APAP (5/325) TAB PO PRN (02:26)
[2019-02-26] MEDS: DEXTROSE 5%-0.45% NACL 1,000 ML IV SCH (02:38)
[2019-02-26 02:40] VITALS: BP 119/58; PULSE 56; RESP 18
--- NOTE | 2019-02-26 07:24 | PDOCDIS ---
Discharge Instructions CONDITION [id number] Patient Condition: [id number] Good HOME CARE INSTRUCTIONS: [id number] Diet Instructions: [id number] Regular ACTIVITY: [id number] Activity Restrictions: [id number] Slowly Increase Activity Rest between Activity Avoid heavy lifting Do not Drive Do not operate Machinery Do not operate Power Tool Avoid Heavy Housework [id number] Bathing Restrictions: [id number] Shower FOLLOW UP/APPOINTMENTS Follow-up Plan Follow-up with Dr. Melo in 2 weeks HAYDEE MELO MD Feb 26, 2019 07:24
[2019-02-26 07:30] VITALS: BP 116/56; PULSE 72; RESP 19
--- NOTE | 2019-02-26 07:59 | CONS ---
Assessment/Plan Assessment/Plan Assessment/Plan (Daily) 1. Stable post op lumbar back surgery 2. Rev with ortho OK to dc after seen by PT and OT Consultation Date/Type/Reason Admit Date/Time Feb 23, 2019 at 05:44 Initial Consult Date Date/Time of Note DATE: 02/26/19 TIME: 07:58 Detailed Summary Respiratory: No cough, No shortness of breath Cardiovascular: No chest pain Gastrointestinal: no complaints, other (constipated) Genitourinary: no complaints Musculoskeletal: back pain (mild to mod) Exam/Review of Systems Exam Vitals Vital Signs Date Temp Pulse Resp B/P (MAP) Pulse Ox O2 O2 Flow FiO2 Time Delivery Rate 02/26/19 98.2 72 19 116/56 99 07:30 (76) 02/25/19 Nasal 12:24 Cannula 02/24/19 2.0 08:00 Intake and Output 02/25/19 02/25/19 02/26/19 1515:00 23:00 07:00 IntakeIntake Total 600 ml 320 ml OutputOutput Total 80 ml 20 ml BalanceBalance 600 ml 240 ml -20 ml Neck: No jvd Respiratory: clear to auscultation Cardiovascular: regular rate and rhythm Gastrointestinal: soft Extremities: No edema, No tenderness Results Result Diagram: 02/24/19 0459 02/24/19 0459 Medications Medication Current Medications Dextrose/Sodium Chloride 1,000 ml @ 100 mls/hr Q10H IV Last administered on 02/24/19at 11:18; Admin Dose 100 MLS/HR; Start 02/23/19 at 14:38 Acetaminophen/ Hydrocodone Bitart ([place] (5/325)) 1 tab Q4H PRN PO .PAIN 1-5; Start 02/23/19 at 15:00 Acetaminophen/ Hydrocodone Bitart ([place] (5/325)) 2 tab Q4H PRN PO .PAIN 6-10 Last administered on 02/26/19at 02:26; Admin Dose 2 TAB; Start 02/23/19 at 15:00 Prochlorperazine (Compazine) 10 mg Q4H PRN PO NAUSEA/VOMITING; Start 02/23/19 at 15:00 Ondansetron HCl (Zofran Inj) 4 mg Q6H PRN IV NAUSEA/VOMITING; Start 02/23/19 at 15:00 Al Hydrox/Mg Hydrox/Simethicone (Mag-Al Plus) 15 ml Q4H PRN PO .CONSTIPATION; Start 02/23/19 at 15:00 Docusate Sodium (Colace) 100 mg BID PO Last administered on 02/25/19at 20:40; Admin Dose 100 MG; Start 02/24/19 at 09:00 Acetaminophen (Tylenol Tab) 650 mg Q4H PRN PO TEMP GREATER THAN 101F OR TILLMAN; Start 02/23/19 at 15:00 IV Flush (NS 3 ml) 3 ml PER PROTOCOL IV ; Start 02/23/19 at 15:00 Naloxone HCl (Narcan) 0.2 mg Q2M PRN IV RR 8 BREATHS/MIN OR LESS; Start 02/23/19 at 15:00 Hydromorphone HCl (Dilaudid) 0.5 mg Q3H PRN IV SEVERE PAIN LEVEL 7-10; Start 02/24/19 at 09:30 Magnesium Hydroxide (Milk Of Mag) 30 ml BID PRN PO CONSTIPATION Last administered on 02/26/19at 02:27; Admin Dose 30 ML; Start 02/25/19 at 19:00 ABDULKADIR BELCHER MD Feb 26, 2019 07:59
[2019-02-26] MEDS: DOCUSATE SODIUM 100 MG CAP PO SCH (11:09)
== END 2019-02-26 14:00 | disposition home or self-care (01) | DRG 455 ==
LOC: REC 05:44 → MS1 17:27
PROVIDERS: ADMIT Orthopaedic Surgery; ATTEND Orthopaedic Surgery
PROC: 0SG00K1 Fusion of Lumbar Vertebral Joint with Nonautologous Tissue Substitute, Posterior Approach, Posterior Column, Open Approach (ICD-10-PCS; 2019-02-23)
PROC: 0SB20ZZ Excision of Lumbar Vertebral Disc, Open Approach (ICD-10-PCS; 2019-02-23)
PROC: 0SG00AJ Fusion of Lumbar Vertebral Joint with Interbody Fusion Device, Posterior Approach, Anterior Column, Open Approach (ICD-10-PCS; principal; 2019-02-23 08:00)
DX: M43.16 Spondylolisthesis, lumbar region (principal); M48.061 Spinal stenosis, lumbar region without neurogenic claudication; M54.16 Radiculopathy, lumbar region; Z87.891 Personal history of nicotine dependence
CPT/HCPCS: 72110; 80048; 85014; 85018; 86850; 86900; 86901; 88304; 97116; 97162; 97530; J0131; J0690; J1100; J1170; J2250; J2405; J2710; J3010; J7042; J7120